=== PATIENT | male | born 1980 | race Caucasian/White ===

== ENCOUNTER 2021-01-24 22:51 | Emergency (ER) | payer MEDICAID ==
[~2021-01-24] VITALS: Ht 170.2 cm; Wt 71.5 kg
[2021-01-24 23:20] VITALS: BP 119/78
[2021-01-25] MEDS ORDERED: CEPH500C2 PO (01:03)
[2021-01-25] MEDS ORDERED: cephalexin 250mg capsule PO ONE (01:05)
== END 2021-01-25 01:13 | disposition home or self-care (01) ==
LOC: ER 22:52
DX: N49.2 Inflammatory disorders of scrotum (principal); Z79.2 Long term (current) use of antibiotics
CPT/HCPCS: 54700; 99284

== ENCOUNTER 2022-08-28 18:56 | Emergency (ER) | payer MEDICAID ==
[~2022-08-28] VITALS: Ht 162.6 cm; Wt 67.0 kg
[2022-08-28 19:33] VITALS: BP 123/77
[2022-08-28] MEDS ORDERED: buprenorphine/naloxone 8MG-2MG SUBlingual film SL STA (20:01)
[2022-08-28] MEDS ORDERED: BUPR1FIL3 SL (20:02)
== END 2022-08-28 20:21 | disposition home or self-care (01) ==
LOC: ER 18:58
DX: F11.20 Opioid dependence, uncomplicated (principal); F15.20 Other stimulant dependence, uncomplicated; Z59.00 Homelessness unspecified
CPT/HCPCS: 99283

== ENCOUNTER 2023-07-08 19:15 | Emergency (ER) | payer MEDICAID ==
[~2023-07-08] VITALS: Ht 165.1 cm; Wt 63.6 kg
[2023-07-08 19:24] VITALS: BP 118/82; PULSE 85; TEMP 98.3; O2SAT 97
[2023-07-08] MEDS ORDERED: ketorolac tromethamine 15mg/ml inj. IM ONE (21:05)
[2023-07-08] MEDS ORDERED: clindamycin 150mg capsule PO ONE (21:05)
[2023-07-08] MEDS ORDERED: CLIN300C54 PO (21:12)
[2023-07-08] MEDS ORDERED: NAPR-1154 PO (21:12)
[2023-07-08 21:40] VITALS: RESP 16
== END 2023-07-08 21:59 | disposition home or self-care (01) ==
LOC: ER 19:16
DX: K04.7 Periapical abscess without sinus (principal); F15.90 Other stimulant use, unspecified, uncomplicated; F11.90 Opioid use, unspecified, uncomplicated; Z59.00 Homelessness unspecified; Z79.899 Other long term (current) drug therapy
CPT/HCPCS: 96372; 99283; J1885